=== PATIENT | male | born 1985 | race Caucasian/White ===

== ENCOUNTER 2017-02-07 11:55 | Emergency (ER) | payer OTHER ==
[~2017-02-07] VITALS: Ht 182.9 cm; Wt 76.9 kg
[2017-02-07 12:20] LABS: ADD MIUA? YES; BILIRUBIN NEGATIVE; BLOOD NEGATIVE; COLOR AMBER ((YELLOW)); GLUCOSE (STRIP) NEGATIVE; KETONES 5; LEUKOCYTES NEGATIVE; NITRITE NEGATIVE; PROTEIN (STRIP) 30; SPECIFIC GRAVITY 1.025 (1.000-1.030)
[2017-02-07 12:24] LABS: HEMATOCRIT 42.6 % (38.0-50.0); MCH 30.7 PG (29.0-34.0); MCHC 34.7 G/DL (30.0-36.0); MCV 88.4 FL (86-99); MEAN PLAT.VOLUME 10.4 uM^3 (9.0-12.4); PLATELET COUNT 211 K/uL (156-360); RBC DIS.WIDTH-CV 12.5 % (11.8-14.6); RBC DIS.WIDTH-SD 39.9 % (39-53); RED BLOOD COUNT 4.82 M/uL (4.00-5.50); WHITE BLOOD COUNT 6.7 K/uL (4.1-10.2)
[2017-02-07 12:29] LABS: BACTERIA RARE /HPF; EPITHELIAL CELLS NONE SEEN /HPF; MUCUS 3+ /LPF; RED BLOOD CELLS 0-5 /HPF (0-5); UCUL ADDED? YES
[2017-02-07 12:38] LABS: CHLORIDE 103 mEq/L (99-109); POTASSIUM 3.5 mEq/L (3.7-5.4); SODIUM 136 mEq/L (136-147)
[2017-02-07 12:41] LABS: GLUCOSE 114 mg/dL (70-99)
[2017-02-07 12:42] LABS: ANION GAP 8 MEQ/L (2-14)
[2017-02-07 12:43] LABS: TOTAL BILIRUBIN 2.9 mg/dL (0.0-1.0)
[2017-02-07 12:44] LABS: ALKALINE PHOSPHATASE 51 IU/L (3-129)
[2017-02-07 12:45] LABS: GFR ESTIMATE (CALCULATED) > 59 mL/min/; UREA NITROGEN (BUN) 13 mg/dL (9-23)
[2017-02-07] MEDS ORDERED: ZOFRAN ODT4 MG PO (13:42)
[2017-02-07 14:47] VITALS: BP 117/73
== END 2017-02-07 14:54 | disposition home or self-care (01) ==
LOC: EME 11:55
DX: B34.9 Viral infection, unspecified (principal); R11.2 Nausea with vomiting, unspecified; R19.7 Diarrhea, unspecified; R10.30 Lower abdominal pain, unspecified; J02.9 Acute pharyngitis, unspecified; F17.200 Nicotine dependence, unspecified, uncomplicated
CPT/HCPCS: 80053; 81003; 85027; 87086; 99281; 99284